=== PATIENT | male | born 1960 | race American Indian/Alaskan Native ===

== ENCOUNTER 2016-08-21 14:44 | Emergency (ER) | payer OTHER ==
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
[2016-08-21 19:15] VITALS: BP 130/80
== END 2016-08-21 19:21 | disposition home or self-care (01) ==
LOC: ED 14:44
DX: S13.4XXA Sprain of ligaments of cervical spine, initial encounter (principal); V49.49XA Driver injured in collision with other motor vehicles in traffic accident, initial encounter; Y93.89 Activity, other specified; Y99.8 Other external cause status; Y92.89 Other specified places as the place of occurrence of the external cause
CPT/HCPCS: 99283

== ENCOUNTER 2017-06-22 12:34 | Emergency (ER) | payer BC, OTHER ==
[2017-06-22 12:46] VITALS: BP 126/86
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
[2017-06-22] MEDS ORDERED: MOTRIN PO ONE (15:29)
== END 2017-06-22 16:33 | disposition home or self-care (01) ==
LOC: ED 12:34
DX: S13.4XXA Sprain of ligaments of cervical spine, initial encounter (principal); S39.012A Strain of muscle, fascia and tendon of lower back, initial encounter; V87.7XXA Person injured in collision between other specified motor vehicles (traffic), initial encounter; Y93.89 Activity, other specified; Y99.8 Other external cause status; Y92.410 Unspecified street and highway as the place of occurrence of the external cause
CPT/HCPCS: 99282